=== PATIENT | female | born 1935 | race Caucasian/White ===

== ENCOUNTER 2020-11-20 05:49 | Emergency (ER) | payer OTHER, MEDICAID ==
[~2020-11-20] VITALS: Ht 160 cm; Wt 64.4 kg
[2020-11-20 05:49] VITALS: BP_SYST 136
--- NOTE | 2020-11-20 05:53 | NUR ---
Patient to ER bed 6 to gown for evaluation. Side rails up. Report given to Patrizia.
--- NOTE | 2020-11-20 06:02 | NUR ---
Blood for labwork drawn from [employer]. Patient tolerated well.
--- NOTE | 2020-11-20 06:10 | NUR ---
pt BIB BLS from [facility] c/o nosebleed but has resolved for now. Upon arrival pt is awake, alert and responsive to commands. per report, no hx of falls or trauma occured. pt hx of dementia, pacemaker, HTN, CVA, hypothyroidism, hyperlipidemia, and depression.
[2020-11-20 06:30] LABS: BASOPHILS # (AUTO) 0.1 K/uL (0.0-0.2); BASOPHILS % (AUTO) 1.3 % (0.0-2.0); EOSINOPHILS # (AUTO) 0.2 K/uL (0.0-0.4); EOSINOPHILS % (AUTO) 3.8 % (0.0-4.0); HEMATOCRIT 28.6 % (36-48); HEMOGLOBIN 9.7 g/dL (12.0-16.0); LYMPHOCYTES # (AUTO) 1.5 K/uL (1.0-5.5); LYMPHOCYTES % (AUTO) 36.2 % (20.5-51.5); MEAN CORPUSCULAR HEMOGLOBIN 32 pg (27-31); MEAN CORPUSCULAR HGB CONC 34 % (32-36); MEAN CORPUSCULAR VOLUME 94 fL (79.0-98.0); MONOCYTES # (AUTO) 0.5 K/uL (0.0-1.0); MONOCYTES % (AUTO) 11.7 % (1.7-9.3); PLATELET COUNT (AUTO) 188 K/uL (130-430); RED BLOOD CELL COUNT(AUTO) 3.03 MIL/uL (4.2-6.2); RED CELL DISTRIBUTION WIDTH 12.3 % (9.0-15.0); WHITE BLOOD COUNT (AUTO) 4.2 K/uL (4.8-10.8)
--- NOTE | 2020-11-20 06:41 | NUR ---
ER Dr. Ramirez at bedside examining patient.
[2020-11-20 06:45] LABS: PROTHROMBIN TIME 9.8 SECS (9.5-12.5)
[2020-11-20 06:52] LABS: ANION GAP 7 (5-15); CALCIUM 8.7 mg/dL (8.4-11.0); CHLORIDE 103 mmol/L (98-107); CREATININE 2.68 mg/dL (0.55-1.30); GLUCOSE 120 mg/dL (70-99); POTASSIUM 4.4 mmol/L (3.5-5.1); SODIUM SERUM 137 mmol/L (136-145); UREA NITROGEN, BLOOD 47 mg/dL (8-21)
[2020-11-20 06:57] LABS: ALANINE AMINOTRANSFERASE 13 U/L (12-78); ALBUMIN 3.4 g/dL (3.4-4.8); ASPARTATE AMINOTRANSFERASE 14 U/L (10-37); TOTAL BILIRUBIN 0.4 mg/dL (0.0-1.0)
--- NOTE | 2020-11-20 07:01 | NUR ---
pts nosebleed continues to remain resolved without any active bleeding. MD aware.
[2020-11-20] MEDS: TRANEXAMIC ACID 1,000 MG/10 ML VIAL IV ONE (07:02)
[2020-11-20 07:31] VITALS: BP_SYST 128
--- NOTE | 2020-11-20 07:31 | NUR ---
Patient given written and verbal discharge instructions and verbalizes understanding. ER MD discussed with patient the results and treatment provided. Patient in stable condition. ID arm band removed. no IV no Rx given. Patient educated on pain management and to follow up with PMD. Pain Scale 0/10. Opportunity for questions provided and answered. Medication side effect fact sheet provided.
--- NOTE | 2020-11-20 07:32 | NUR ---
Dr. Ramirez speaking with pts primary doctor Dr. Zapata regarding patients labs.
== END 2020-11-20 07:31 | disposition home or self-care (01) ==
LOC: SED 05:49
DX: R04.0 Epistaxis (principal); N28.9 Disorder of kidney and ureter, unspecified
CPT/HCPCS: 36415; 80053; 85025; 85610-TC; 85730-TC; 99283

== ENCOUNTER 2021-01-25 20:34 | Inpatient (IN) | payer OTHER, MEDICAID, SELFPAY ==
[~2021-01-25] VITALS: Ht 167.6 cm; Wt 57.6 kg
[2021-01-25 20:34] VITALS: BP_SYST 96
[2021-01-25] MEDS ORDERED: NS 500 ML IV SCH (21:30)
[2021-01-25 21:47] LABS: BASOPHILS % (AUTO) 0.6 % (0.0-2.0); EOSINOPHILS # (AUTO) 0.1 K/uL (0.0-0.4); EOSINOPHILS % (AUTO) 1.3 % (0.0-4.0); HEMATOCRIT 22.4 % (36-48); HEMOGLOBIN 7.5 g/dL (12.0-16.0); LYMPHOCYTES # (AUTO) 1.2 K/uL (1.0-5.5); LYMPHOCYTES % (AUTO) 15.1 % (20.5-51.5); MEAN CORPUSCULAR HEMOGLOBIN 31 pg (27-31); MEAN CORPUSCULAR HGB CONC 34 % (32-36); MEAN CORPUSCULAR VOLUME 93 fL (79.0-98.0); MONOCYTES # (AUTO) 0.7 K/uL (0.0-1.0); MONOCYTES % (AUTO) 9.2 % (1.7-9.3); NEUTROPHILS # (AUTO) 5.8 K/uL (1.8-7.7); NEUTROPHILS % (AUTO) 73.8 % (40.0-70.0); PLATELET COUNT (AUTO) 294 K/uL (130-430); RED CELL DISTRIBUTION WIDTH 12.3 % (9.0-15.0); WHITE BLOOD COUNT (AUTO) 7.8 K/uL (4.8-10.8)
[2021-01-25 22:01] LABS: ANION GAP 10 (5-15); CALCIUM 8.2 mg/dL (8.4-11.0); CHLORIDE 104 mmol/L (98-107); CREATININE 2.48 mg/dL (0.55-1.30); GLUCOSE 254 mg/dL (70-99); POTASSIUM 4.3 mmol/L (3.5-5.1); SODIUM SERUM 137 mmol/L (136-145); UREA NITROGEN, BLOOD 40 mg/dL (8-21)
[2021-01-25 22:05] LABS: PROTHROMBIN TIME 10.3 SECS (9.5-12.5)
[2021-01-25 22:06] LABS: ALBUMIN 2.6 g/dL (3.4-4.8); ASPARTATE AMINOTRANSFERASE 9 U/L (10-37); TOTAL BILIRUBIN 0.2 mg/dL (0.0-1.0)
[2021-01-25] MEDS ORDERED: DIPHENHYDRAMINE HCL 12.5 MG/5 ML UDC NG ONE (22:30)
[2021-01-25] MEDS ORDERED: ACETAMINOPHEN 325 MG TABLET PO ONE (22:30)
[2021-01-25 22:36] LABS: ALANINE AMINOTRANSFERASE 9 U/L (12-78)
[2021-01-25] MEDS ORDERED: D5/0.45 NS 1,000 ML IV SCH (23:00)
[2021-01-25] MEDS ORDERED: hydrALAZINE HCL 20 MG/ML VIAL IVP PRN (23:00)
[2021-01-25] MEDS ORDERED: ONDANSETRON HCL 4 MG/2 ML VIAL IVP PRN (23:00)
[2021-01-25] MEDS ORDERED: LEVO75TA7 PO (23:02)
[2021-01-25] MEDS ORDERED: LOSA100T23 PO (23:03)
[2021-01-25] MEDS ORDERED: ASPI-1393 PO (23:03)
[2021-01-25] MEDS ORDERED: AMLO5TAB4 PO (23:04)
[2021-01-25] MEDS ORDERED: SERT-436 PO (23:04)
[2021-01-25] MEDS ORDERED: MEMA5TAB PO (23:05)
[2021-01-25] MEDS ORDERED: CLON0.1T PO (23:07)
[2021-01-25] MEDS ORDERED: SIMV20TA2 PO (23:07)
[2021-01-25] MEDS ORDERED: DONE10TA44 PO (23:08)
[2021-01-25] MEDS ORDERED: HYDR12.55 PO (23:08)
[2021-01-25] MEDS ORDERED: LORA-258 PO (23:09)
[2021-01-25] MEDS ORDERED: ACET-73 PO (23:10)
[2021-01-26] VITALS (7 sets, daily range): BP systolic 130–154
[2021-01-26] MEDS ORDERED: INSULIN REGULAR, HUMAN 100 UNITS/ML, 10 ML VIAL (humuLIN R) SUBCUT SCH
[2021-01-26] MEDS ORDERED: hydrALAZINE HCL 20 MG/ML VIAL IVP PRN (01:00)
[2021-01-26] MEDS ORDERED: ONDANSETRON HCL 4 MG/2 ML VIAL IVP PRN (01:00)
[2021-01-26] MEDS: D5/0.45 NS 1,000 ML IV SCH ×2 (02:52→15:18)
[2021-01-26] MEDS: INSULIN REGULAR, HUMAN 100 UNITS/ML, 10 ML VIAL (humuLIN R) SUBCUT PRN ×2 (06:25→18:32)
[2021-01-26] MEDS ORDERED: DEXTROSE 50%-WATER 50 ML DISP.SYRIN IVP PRN (08:00)
[2021-01-26] MEDS ORDERED: LORazepam 2 MG/ML VIAL IM PRN (08:00)
[2021-01-26] MEDS ORDERED: D5W 1,000 ML IV PRN (08:00)
[2021-01-26] MEDS ORDERED: GLUCOSE (DEXTROSE) ORAL GEL -Adults PO PRN (08:00)
[2021-01-26] MEDS ORDERED: FAMOTIDINE 20 MG TABLET PO ONE (09:00)
[2021-01-26] MEDS ORDERED: HYDROcodone/ACETAMIN 5-325 MG TAB (NORCO/ VICODIN) PO PRN (09:00)
[2021-01-26] MEDS ORDERED: PANTOPRAZOLE SODIUM 40 MG/VIAL (PROTONIX) IVP SCH (09:00)
[2021-01-26] MEDS ORDERED: GOLYTELY / COLYTE SOLUTION 4 LITERS PO ONE (09:00)
[2021-01-26] MEDS ORDERED: LORazepam 2 MG/ML VIAL IVP PRN (09:15)
[2021-01-26] MEDS: PANTOPRAZOLE SODIUM 40 MG/VIAL (PROTONIX) IVP SCH ×2 (09:25→20:44)
[2021-01-26] MEDS ORDERED: BISACODYL 5 MG TABLET.DR (DULCOLAX) PO ONE (17:00)
[2021-01-27] MEDS: D5/0.45 NS 1,000 ML IV SCH ×2 (04:02→22:24)
[2021-01-27 06:31] LABS: BASOPHILS # (AUTO) 0.1 K/uL (0.0-0.2); BASOPHILS % (AUTO) 0.9 % (0.0-2.0); EOSINOPHILS # (AUTO) 0.1 K/uL (0.0-0.4); EOSINOPHILS % (AUTO) 1.4 % (0.0-4.0); HEMATOCRIT 28.1 % (36-48); HEMOGLOBIN 9.6 g/dL (12.0-16.0); LYMPHOCYTES # (AUTO) 1.6 K/uL (1.0-5.5); LYMPHOCYTES % (AUTO) 18.4 % (20.5-51.5); MEAN CORPUSCULAR HEMOGLOBIN 31 pg (27-31); MEAN CORPUSCULAR HGB CONC 34 % (32-36); MEAN CORPUSCULAR VOLUME 91 fL (79.0-98.0); MONOCYTES # (AUTO) 0.8 K/uL (0.0-1.0); MONOCYTES % (AUTO) 9.2 % (1.7-9.3); NEUTROPHILS # (AUTO) 6.2 K/uL (1.8-7.7); NEUTROPHILS % (AUTO) 70.1 % (40.0-70.0); PLATELET COUNT (AUTO) 318 K/uL (130-430); RED BLOOD CELL COUNT(AUTO) 3.08 MIL/uL (4.2-6.2); RED CELL DISTRIBUTION WIDTH 13.5 % (9.0-15.0); WHITE BLOOD COUNT (AUTO) 8.9 K/uL (4.8-10.8)
[2021-01-27 06:52] LABS: PROTHROMBIN TIME 10.2 SECS (9.5-12.5)
[2021-01-27 06:55] LABS: ANION GAP 12 (5-15); CALCIUM 8.5 mg/dL (8.4-11.0); CHLORIDE 105 mmol/L (98-107); GLUCOSE 154 mg/dL (70-99); POTASSIUM 3.5 mmol/L (3.5-5.1); SODIUM SERUM 140 mmol/L (136-145); UREA NITROGEN, BLOOD 27 mg/dL (8-21)
[2021-01-27] MEDS ORDERED: SIMETHICONE 40 MG/0.6 ML ML ONE (07:18)
[2021-01-27] MEDS ORDERED: MIDAZOLAM HCL 5 MG/5 ML VIAL ONE (07:18)
[2021-01-27] MEDS ORDERED: MEPERIDINE 100 MG INJ. 100 MG/ML VIAL ONE (07:18)
[2021-01-27] MEDS ORDERED: BENZOCAINE 20% 0.5mL UD SPRAY MM ONE (07:18)
[2021-01-27] MEDS: PANTOPRAZOLE SODIUM 40 MG/VIAL (PROTONIX) IVP SCH ×2 (08:08→22:24)
[2021-01-27 08:10] VITALS: BP_SYST 145
[2021-01-27] MEDS ORDERED: fentaNYL CITRATE/PF 100 MCG/2 ML AMP ONE (08:55)
[2021-01-27 10:15] VITALS: BP_SYST 136
[2021-01-27] MEDS ORDERED: EPINEPHrine JECT 0.1 MG/ML SYR ONE (10:31)
[2021-01-27] MEDS: INSULIN REGULAR, HUMAN 100 UNITS/ML, 10 ML VIAL (humuLIN R) SUBCUT PRN (11:18)
[2021-01-27 12:31] VITALS: BP_SYST 146
[2021-01-27 16:46] VITALS: BP_SYST 150
[2021-01-27 20:00] VITALS: BP_SYST 140
[2021-01-28] VITALS (8 sets, daily range): BP systolic 134–168
[2021-01-28] MEDS: INSULIN REGULAR, HUMAN 100 UNITS/ML, 10 ML VIAL (humuLIN R) SUBCUT PRN ×2 (00:32→12:18)
[2021-01-28 07:00] LABS: BASOPHILS # (AUTO) 0.1 K/uL (0.0-0.2); BASOPHILS % (AUTO) 0.7 % (0.0-2.0); EOSINOPHILS # (AUTO) 0.1 K/uL (0.0-0.4); EOSINOPHILS % (AUTO) 1.1 % (0.0-4.0); HEMOGLOBIN 7.3 g/dL (12.0-16.0); LYMPHOCYTES # (AUTO) 2.5 K/uL (1.0-5.5); LYMPHOCYTES % (AUTO) 26.3 % (20.5-51.5); MEAN CORPUSCULAR HEMOGLOBIN 31 pg (27-31); MEAN CORPUSCULAR HGB CONC 34 % (32-36); MEAN CORPUSCULAR VOLUME 91 fL (79.0-98.0); MONOCYTES # (AUTO) 1.2 K/uL (0.0-1.0); MONOCYTES % (AUTO) 12.1 % (1.7-9.3); NEUTROPHILS # (AUTO) 5.7 K/uL (1.8-7.7); NEUTROPHILS % (AUTO) 59.8 % (40.0-70.0); PLATELET COUNT (AUTO) 313 K/uL (130-430); RED BLOOD CELL COUNT(AUTO) 2.37 MIL/uL (4.2-6.2); RED CELL DISTRIBUTION WIDTH 13.7 % (9.0-15.0); WHITE BLOOD COUNT (AUTO) 9.6 K/uL (4.8-10.8)
[2021-01-28 07:25] LABS: ANION GAP 13 (5-15); CALCIUM 8.3 mg/dL (8.4-11.0); CHLORIDE 110 mmol/L (98-107); CREATININE 2.18 mg/dL (0.55-1.30); GLUCOSE 114 mg/dL (70-99); POTASSIUM 3.4 mmol/L (3.5-5.1); SODIUM SERUM 143 mmol/L (136-145); UREA NITROGEN, BLOOD 28 mg/dL (8-21)
[2021-01-28 07:29] LABS: HEMATOCRIT 21.6 % (36-48)
[2021-01-28] MEDS: PANTOPRAZOLE SODIUM 40 MG/VIAL (PROTONIX) IVP SCH ×2 (08:47→21:00)
[2021-01-28] MEDS: D5/0.45 NS 1,000 ML IV SCH (10:12)
[2021-01-28] MEDS: SERTRALINE HCL 50 MG TABLET PO SCH (23:00)
[2021-01-28] MEDS ORDERED: ACETAMINOPHEN 500 MG TABLET PO PRN (23:00)
[2021-01-29] MEDS: D5/0.45 NS 1,000 ML IV SCH ×2 (00:30→15:44)
[2021-01-29 00:43] VITALS: BP_SYST 115
[2021-01-29] MEDS: INSULIN REGULAR, HUMAN 100 UNITS/ML, 10 ML VIAL (humuLIN R) SUBCUT PRN ×4 (01:16→23:09)
[2021-01-29 06:40] LABS: BASOPHILS # (AUTO) 0.1 K/uL (0.0-0.2); BASOPHILS % (AUTO) 0.5 % (0.0-2.0); EOSINOPHILS # (AUTO) 0.1 K/uL (0.0-0.4); EOSINOPHILS % (AUTO) 0.8 % (0.0-4.0); HEMATOCRIT 28.6 % (36-48); HEMOGLOBIN 9.6 g/dL (12.0-16.0); LYMPHOCYTES # (AUTO) 1.8 K/uL (1.0-5.5); LYMPHOCYTES % (AUTO) 14.2 % (20.5-51.5); MEAN CORPUSCULAR HEMOGLOBIN 31 pg (27-31); MEAN CORPUSCULAR HGB CONC 34 % (32-36); MEAN CORPUSCULAR VOLUME 91 fL (79.0-98.0); MONOCYTES # (AUTO) 1.9 K/uL (0.0-1.0); MONOCYTES % (AUTO) 14.6 % (1.7-9.3); NEUTROPHILS # (AUTO) 8.9 K/uL (1.8-7.7); NEUTROPHILS % (AUTO) 69.9 % (40.0-70.0); PLATELET COUNT (AUTO) 295 K/uL (130-430); RED BLOOD CELL COUNT(AUTO) 3.13 MIL/uL (4.2-6.2); RED CELL DISTRIBUTION WIDTH 13.5 % (9.0-15.0); WHITE BLOOD COUNT (AUTO) 12.8 K/uL (4.8-10.8)
[2021-01-29] MEDS: LEVOTHYROXINE SODIUM 0.075 MG TABLET PO SCH (07:00)
[2021-01-29 07:08] LABS: ANION GAP 12 (5-15); CALCIUM 8.2 mg/dL (8.4-11.0); CHLORIDE 108 mmol/L (98-107); GLUCOSE 130 mg/dL (70-99); POTASSIUM 3.2 mmol/L (3.5-5.1); SODIUM SERUM 141 mmol/L (136-145); UREA NITROGEN, BLOOD 22 mg/dL (8-21)
[2021-01-29 08:06] VITALS: BP_SYST 139
[2021-01-29] MEDS: PANTOPRAZOLE SODIUM 40 MG/VIAL (PROTONIX) IVP SCH ×2 (09:59→21:53)
[2021-01-29] MEDS: SERTRALINE HCL 50 MG TABLET PO SCH (10:08)
[2021-01-29] MEDS: MEMANTINE HCL 5 MG TABLET PO SCH ×2 (10:08→21:53)
[2021-01-29] MEDS: amLODIPine BESYLATE 5 MG TABLET PO SCH (10:09)
[2021-01-29 11:40] VITALS: BP_SYST 146
[2021-01-29] MEDS ORDERED: POTASSIUM CHLORIDE 20 MEQ TAB.PRT.SR PO ONE (12:15)
[2021-01-29 16:03] VITALS: BP_SYST 153
[2021-01-29 20:00] VITALS: BP_SYST 138
[2021-01-29] MEDS: DONEPEZIL HCL 5 MG TABLET (ARICEPT) PO SCH (21:53)
[2021-01-29] MEDS: SIMVASTATIN 20 MG TABLET PO SCH (21:53)
[2021-01-30] VITALS (7 sets, daily range): BP systolic 102–163
[2021-01-30] MEDS: INSULIN REGULAR, HUMAN 100 UNITS/ML, 10 ML VIAL (humuLIN R) SUBCUT PRN ×2 (06:22→11:21)
[2021-01-30] MEDS: LEVOTHYROXINE SODIUM 0.075 MG TABLET PO SCH (06:51)
[2021-01-30] MEDS: D5/0.45 NS 1,000 ML IV SCH ×2 (06:52→19:24)
[2021-01-30 06:57] LABS: BASOPHILS # (AUTO) 0.1 K/uL (0.0-0.2); BASOPHILS % (AUTO) 0.6 % (0.0-2.0); EOSINOPHILS # (AUTO) 0.1 K/uL (0.0-0.4); EOSINOPHILS % (AUTO) 0.7 % (0.0-4.0); LYMPHOCYTES # (AUTO) 1.4 K/uL (1.0-5.5); LYMPHOCYTES % (AUTO) 9.3 % (20.5-51.5); MEAN CORPUSCULAR HEMOGLOBIN 31 pg (27-31); MEAN CORPUSCULAR HGB CONC 33 % (32-36); MEAN CORPUSCULAR VOLUME 94 fL (79.0-98.0); MONOCYTES # (AUTO) 1.8 K/uL (0.0-1.0); MONOCYTES % (AUTO) 12.7 % (1.7-9.3); NEUTROPHILS # (AUTO) 11.2 K/uL (1.8-7.7); NEUTROPHILS % (AUTO) 76.7 % (40.0-70.0); PLATELET COUNT (AUTO) 287 K/uL (130-430); RED BLOOD CELL COUNT(AUTO) 2.88 MIL/uL (4.2-6.2); RED CELL DISTRIBUTION WIDTH 13.8 % (9.0-15.0); WHITE BLOOD COUNT (AUTO) 14.5 K/uL (4.8-10.8)
[2021-01-30 07:35] LABS: ALANINE AMINOTRANSFERASE 9 U/L (12-78); ALBUMIN 2.4 g/dL (3.4-4.8); ANION GAP 12 (5-15); ASPARTATE AMINOTRANSFERASE 11 U/L (10-37); CALCIUM 8.1 mg/dL (8.4-11.0); CHLORIDE 109 mmol/L (98-107); CREATININE 1.91 mg/dL (0.55-1.30); GLUCOSE 219 mg/dL (70-99); PHOSPHORUS 2.4 mg/dL (2.7-4.5); SODIUM SERUM 142 mmol/L (136-145); THYROID STIMULATING HORMONE 0.96 uIu/mL (0.36-3.74); TOTAL BILIRUBIN 0.7 mg/dL (0.0-1.0); UREA NITROGEN, BLOOD 22 mg/dL (8-21)
[2021-01-30] MEDS: amLODIPine BESYLATE 5 MG TABLET PO SCH (08:18)
[2021-01-30] MEDS: SERTRALINE HCL 50 MG TABLET PO SCH (08:18)
[2021-01-30] MEDS: MEMANTINE HCL 5 MG TABLET PO SCH ×2 (08:18→20:17)
[2021-01-30] MEDS: PANTOPRAZOLE SODIUM 40 MG/VIAL (PROTONIX) IVP SCH ×2 (08:18→20:17)
[2021-01-30] MEDS ORDERED: PRO40 PO (13:43)
[2021-01-30] MEDS ORDERED: K PHOS 15 MM in NS 250 ML IV ONE (13:45)
[2021-01-30] MEDS ORDERED: MAGNESIUM SULFATE 50 ML IV ONE (13:45)
[2021-01-30] MEDS ORDERED: amLODIPine BESYLATE 5 MG TABLET PO SCH ×2 (13:45→21:00)
[2021-01-30] MEDS: DONEPEZIL HCL 5 MG TABLET (ARICEPT) PO SCH (20:17)
[2021-01-30] MEDS: SIMVASTATIN 20 MG TABLET PO SCH (20:17)
== END 2021-01-30 22:47 | DRG 377 ==
LOC: SED 20:34 → STU 22:56
PROVIDERS: ADMIT Family Medicine; ATTEND Family Medicine
PROC: 30233N1 Transfusion of Nonautologous Red Blood Cells into Peripheral Vein, Percutaneous Approach (ICD-10-PCS; 2021-01-26)
PROC: 0DJ08ZZ Inspection of Upper Intestinal Tract, Via Natural or Artificial Opening Endoscopic (ICD-10-PCS; principal; 2021-01-27 08:30)
PROC: 0W3P8ZZ Control Bleeding in Gastrointestinal Tract, Via Natural or Artificial Opening Endoscopic (ICD-10-PCS; 2021-01-27 08:30)
PROC: 3E0H8GC Introduction of Other Therapeutic Substance into Lower GI, Via Natural or Artificial Opening Endoscopic (ICD-10-PCS; 2021-01-27 08:30)
DX: K57.31 Diverticulosis of large intestine without perforation or abscess with bleeding (principal); E43 Unspecified severe protein-calorie malnutrition; K63.3 Ulcer of intestine; D62 Acute posthemorrhagic anemia; K64.8 Other hemorrhoids; K64.4 Residual hemorrhoidal skin tags; I12.9 Hypertensive chronic kidney disease with stage 1 through stage 4 chronic kidney disease, or unspecified chronic kidney disease; E11.22 Type 2 diabetes mellitus with diabetic chronic kidney disease; N18.30 Chronic kidney disease, stage 3 unspecified; E78.5 Hyperlipidemia, unspecified; F02.80 Dementia in other diseases classified elsewhere, unspecified severity, without behavioral disturbance, psychotic disturbance, mood disturbance, and anxiety; G30.9 Alzheimer's disease, unspecified; Z20.822 Contact with and (suspected) exposure to COVID-19; I25.10 Atherosclerotic heart disease of native coronary artery without angina pectoris; K21.9 Gastro-esophageal reflux disease without esophagitis; E87.6 Hypokalemia; E03.9 Hypothyroidism, unspecified; Z95.5 Presence of coronary angioplasty implant and graft
CPT/HCPCS: 36415; 36430; 43235; 45381; 45382; 45384; 71045; 76770; 80048; 80053; 82962; 83036; 83735; 84100; 84443; 85025; 85610-TC; 85730-TC; 86886; 86900; 86901; 86920; 87081; 96360; 97110-GP; 97530-GP; 99285; C9113; G0378; J0171; J1815; J2060; J2175; J2250; J2405; J3010; J3475; J7050; P9021